=== PATIENT | female | born 1960 | race Caucasian/White ===

== ENCOUNTER 2018-03-12 13:48 | Inpatient (IN) ==
--- NOTE | 2018-03-12 16:28 | Internal Med History&Physical ---
<Randi Garduno - Last Filed: 03/12/18 17:22> Internal Medicine - H&P: HPI History of present illness: Ms. Angel is a 58 year old female Internal Medicine - H&P: Meds No Known Home Drugs 03/12/18 [History] Allergy/AdvReac Type Severity Reaction Status Date / Time No Known Allergies Allergy Verified 03/12/18 11:18 All Systems PM: A 10-system review of systems was performed and is negative for pertinent findings except as documented above in the HPI. - Constitutional Vitals: Temp Pulse Resp BP Pulse Ox 98.3 F 66 16 113/71 99 03/12/18 15:46 03/12/18 15:46 03/12/18 15:46 03/12/18 15:46 03/12/18 15:46 - Time Spent With Patient Total time spent is greater than 50% in coordination of care (as documented) at patient's floor/unit and/or counseling patient: - Attending Attestation I examined this patient and my medical decision-making was reviewed with the Resident Physician Dr Robertson. I agree with the documented findings, disposition and treatment plan as described except to the extent set forth below/addl details below Ms Angel has a past med hx of fibromyalgia, tobacco dependence and THC use for pain. She presented to [place] ED at rec of her pcp for elevated T josh and transaminases on outpt lab work obtained for jaundice. Pt first noted fatigue, nausea, weight loss about 3-5 months ago. She developed yellowing of skin and co worker commented to her about 2 weeks ago. Pt got pcp follow up this week and outpt labs. Upon there result today she was instructed to go to ED CT a/p with 12 cm pnacreatic head mass concerning for pancreatic adenocarcinoma. She was sent her for further work up. Awake, alert, tearful. No nausea, emesis, abd pain. occassional loose bms that have food particles in them when she eats certain foods. Sometimes diarrhea is green. No nightsweats, + 30 lb unintentional weight loss in 3 months. +yellowing of whites of eyes and skin. gen- alert, awake,appears stated age, cachectic eyes- pupils equal round, eom intact, + scleral icterus cv- reg rate and rhythm, normal s1,s2, no murmurs appreciated, no le edema, no jvd lungs- ctabl, no wheezing, rhonchi or crackles abd- soft, non tender, non distended, + bs, no HSM appreciated skin- + jaundice, no ecchymosis, purpura, petechiae neuro- AAOx3 Obstructive Jaundice -CT a/p hypodensity in head of pancreas concerning for pancreatic adenocarcinoma with biliary pancreatic ductal dilatation, HSM. Hyperdense uterine lesions suspected to be fibroids. - T bili 15 (11.5 yesterday), AST 314, ALT 453 (increase from eysterday), Alk Phos 1266, direct bili 9.5 Ammonia 29 and pt has no mental status changes UA lg bili, tylenol <10, hep panel 03/11 neg, HIV 03/11 neg plts 422, INR 1, total protein and albumin normal -we discussed case with GI whom is not available this weekend discussed with sanitation director surgery and rec for transfer for urgent ERCP and possible need for stent -d/w pt and facilitating transfer to [place] Hypokalemia, K + 3.1- will replete oral Vit D Deficiency on 03/11 lab work (10) Hyperglycemia 120-160 without hx diabetes mellitus, likely related to pancreatic changes Tobacco dependence THC Use Fibromyalgia transfer pt for services not able to be provided at [facility] <Mp Robertson - Last Filed: 03/12/18 18:43> Date of Encounter: 03/12/18 Time of Encounter: 16:26 Internal Medicine - H&P: HPI Chief complaint: Jaundice Admitted From: Hospital to Hospital Transfer Plans for Post Hospital Care: Home History of present illness: Ms. Angel is a 58 year old female with PMH of fibromyalgia, who originally presented earlier today at [place] [place] ER for yellowing of the skin. She states a co-worker noticed her skin looked yellow approximately 1-2 weeks ago and she has been "keeping an eye on it". When recalling recent symptoms, she states she has been experiencing anorexia, unintentional weight loss, and diarrhea for approximately the past 5 months. She said at that time her daughter had overdosed on drugs and she assumed the symptoms were stress related, however she notes none of these have since resolved. She also complains of feeling grossly fatigued, but no focal weakness, dizziness, or lightheadedness. She denies any fever, chills, night sweats, easy bleeding, easy bruising, abdominal pain, abdominal bloating or fullness, nausea, vomiting, hematemesis, hematochezia, melena, GI/ symptoms, headaches, numbness, or tingling. Her PMH is only significant for fibromyalgia and self-diagnosed insomnia. She does not take any medications. She prefers to use herbal supplements and teas for her arthralgias, myalgias, and insomnia. She does admit to smoking marijuana, and 1 pack of cigarettes last approximately 3 days. Denies any alcohol, or other illicit drug use. Denies any allergies. Denies any surgeries. Family medical hx: Mother - HTN Father - CHF Brother - Multiple MIs caused by blood clots from his legs No family hx of cancers Past Med Surg Social Fam HX - Past Medical History Attestation: Yes The following information was validated with the patient. Source: patient Medical history: fibromyalgia Additional medical history: INSOMNIA Psychiatric history: no psych history - Past Surgical History Surgical History: no surgical history - Social History Smoking Status: Current every day smoker Packs per day: 1 pack per 3 days Smokeless Tobacco Status: No Alcohol use: none Drug use: marijuana Occupational status: employed Current living situation: Home - Independent Activity Level: Independent ambulation Recent Out of Country Travel Within the Last 8 Weeks: No Exposure or Possible Exposure to Illness During Travel: No All Systems PM: A 10-system review of systems was performed and is negative for pertinent findings except as documented above in the HPI. - Constitutional Constitutional: anorexia, fatigue, lethargy, weight loss, no chills, no fever(s), no falls, no night sweats, no weakness - EENT Eyes: no blurry vision, no change in vision, no itchy eyes, no pain Ears: no decreased hearing, no ear discharge, no ear pain Nose, mouth and throat: no change in voice, no nasal congestion, no nasal discharge, no sore throat - Cardiovascular Cardiovascular ROS IM: no chest pain, no claudication, no diaphoresis, no dyspnea, no dyspnea on exertion, no edema - Respiratory Respiratory: no cough, no dyspnea, no hemoptysis, no dyspnea on exertion, no wheezing, no chest congestion, no excessive phlegm production, no change in phlegm color - Gastrointestinal Gastrointestinal: diarrhea, no abdominal pain, no bloating, no change in bowel habits, no change in stool character, no coffee ground emesis, no dyspepsia, no heartburn, no hematemesis, no hematochezia, no melena, no nausea, no vomiting - Genitourinary Genitourinary: no difficulty urinating, no difficulty voiding, no dysuria, no flank pain, no pelvic pain, no urinary frequency, no urinary hesitancy, no urinary incontinence - Musculoskeletal Musculoskeletal ROS IM: arthralgias, myalgias, no muscle weakness, no numbness, no tingling - Integumentary Integumentary IM: jaundice, no erythema, no rash, no unusual bruising - Neurological Neurological ROS: no abnormal gait, no confusion, no dizziness, no focal weakness, no frequent falls, no headache(s), no numbness, no tingling - Hematologic/Lymphatic Hematologic/Lymphatic: no easy bleeding, no easy bruising, no lymphadenopathy - Constitutional Vitals: Temp Pulse Resp BP Pulse Ox 98.3 F 66 16 113/71 99 03/12/18 15:46 03/12/18 15:46 03/12/18 15:46 03/12/18 15:46 03/12/18 15:46 General appearance: Present: A&O X 3, pleasant, no acute distress, answers questions appropriately Exam: Constitutional: well developed, well nourished female in no acute distress Head: atraumatic, normocephalic Eyes: PERRL, EOMI. scleral icterus present Neck: supple, trachea midline, no lymphadenopathy Lungs: CTA bilaterally. Non-labored breathing. No wheezing, rales, or rhonchi. Heart: RRR +s1 +s2. No murmurs, clicks, or rubs appreciated. Abdomen: soft, non-tender, no hepatosplenomegaly. Some palpable fullness in the epigastric region. Normoactive bowel sounds Extremities: radial pulses palpable and symmetrical. No edema or cyanosis. Neuro: A&Ox3. no focal deficits. Strength in x4 extremities normal. sensation intact. no speech difficulty or abnormality Skin: jaundiced. warm. dry. no lesions noted. - Assessment and plan (1) Obstructive jaundice Current Visit: No Status: Acute Assessment and plan: CT abdomen/pelvis from [place]: -hypodensity in head of pancreas concerning for pancreatic adenocarcinoma with biliary pancreatic ductal dilatation, HSM. Hyperdense uterine lesions suspected to be fibroids. Labs from [place]: - T bili 15 (11.5 yesterday) - Direct Bili 9.5 - AST 314 - ALT 453 - Alk Phos 1266 - Ammonia 29 and pt has no mental status changes - INR 1.0 - Platelets 422 - Total protein and albumin normal Currently afebrile, normotensive, and in no acute distress. Discussed case with GI whom is not available to see her today or this weekend Also discussed case with sanitation director surgery and rec for transfer for urgent ERCP and possible need for stent Discussed all of this with pt and she is amenable to transfer to [facility] (2) Hypokalemia Current Visit: Yes Status: Acute Assessment and plan: Potassium 3.1 Will replace with 40mEq po (3) Tobacco dependence Current Visit: Yes Status: Chronic Assessment and plan: Admits to smoking. 1 pack of cigarettes lasts approximately 3 days. Pt deferring nicotine patch. (4) Hyperglycemia Current Visit: Yes Status: Acute Assessment and plan: Blood glucose elevated to 120-160 No hx diabetes mellitus Likely 2/2 to pancreatic mass Consider checking Hgb A1c in the morning if she is still here (5) Vitamin D deficiency Current Visit: Yes Status: Chronic Assessment and plan: Noted on outside labs Will defer treatment at this time (6) Marijuana use Current Visit: Yes Status: Chronic Assessment and plan: Pt admits to self treating fibromyalgia and insomnia with marijuana Positive on UDS from outside facility - Time Spent With Patient Total time spent is greater than 50% in coordination of care (as documented) at patient's floor/unit and/or counseling patient:
--- NOTE | 2018-03-12 17:35 | Discharge Summary ---
- NOTES TO OUTPATIENT PROVIDER Notes to Outpatient Provider: transfer to [facility] for further work up Orders not resulted at time of discharge: Pending orders 03/13/18 04:00 Activated Partial Thrombo Time [COAG] AM 0400 Complete Blood Count [HEME] AM 0400 Comprehensive Metabolic Panel AM 0400 Hgb A1C AM 0400 Magnesium AM 0400 Phosphorous AM 0400 Prothrombin Time INR [COAG] AM 0400 Date of Encounter: 03/12/18 Time of Encounter: 16:30 - Discharge Diagnosis (1) Obstructive jaundice Priority: Primary Status: Acute (2) Elevated transaminase level Priority: Primary Status: Acute (3) Hyperglycemia Priority: Secondary Status: Acute (4) Hypokalemia Priority: Secondary Status: Acute (5) Vitamin D deficiency Priority: Secondary Status: Chronic (6) Tobacco dependence Priority: Secondary Status: Chronic (7) Marijuana use Priority: Secondary Status: Chronic (8) Fibromyalgia Priority: Secondary Status: Chronic Hospital course: Ms. Angel is a 58 year old female who was transferred from [facility] on 03/12/18 and decisionmade on evaluation of pt on arrival and discussion with surgery and GI plan consultant physicians, for transfer to [facility] for further eval and work up not available at [facility] this weekend. Ms Angel has a past med hx of fibromyalgia, tobacco dependence and THC use for pain. She presented to [facility] at rec of her pcp for elevated T josh and transaminases on outpt lab work obtained for jaundice. Pt first noted fatigue, nausea, weight loss about 3-5 months ago. She developed yellowing of skin around that time and was "keeping an eye on it" until a co worker commented to her about 2 weeks ago about it. She arranged pcp follow up that happened this week and had labs drawn 03/11. Upon their result today she was instructed to go to ED by PCP for emergent eval. CT a/p with 12 cm pnacreatic head mass concerning for pancreatic adenocarcinoma at [facility]. Obstructive Jaundice -CT a/p hypodensity in head of pancreas concerning for pancreatic adenocarcinoma with biliary pancreatic ductal dilatation, HSM. Hyperdense uterine lesions suspected to be fibroids. - T bili 15 (11.5 yesterday), AST 314, ALT 453 (increase from eysterday), Alk Phos 1266, direct bili 9.5 Ammonia 29 and pt has no mental status changes UA lg bili, tylenol <10, hep panel 03/11 neg, HIV 03/11 neg plts 422, INR 1, total protein and albumin normal -we discussed case with GI whom is not available to see her today or this week end -discussed with plan consultant surgery and rec for transfer for urgent ERCP and possible need for stent -d/w pt and facilitating transfer to [place] -keeping npo with sips with meds awaiting transfer Hypokalemia, K + 3.1- will replete oral 40 meq now Vit D Deficiency on 03/11 lab work (10)- defer treatment at this time Hyperglycemia 120-160 without hx diabetes mellitus, likely related to pancreatic changes- if here in AM will check A1c Tobacco dependence-declining patch THC Use + on UDS Fibromyalgia hx she is on no home meds transfer pt for services not able to be provided at [facility] - Time Spent with Patient Total time spent providing and/or coordinating discharge services: - Discharge Medications Home Medications: No Known Home Drugs 03/12/18 [History] Allergies/Adverse Reactions: Allergy/AdvReac Type Severity Reaction Status Date / Time No Known Allergies Allergy Verified 03/12/18 11:18 Date of admission: 03/12/18 15:36 Primary care physician: PCP NONE Consults: surgery and gi were contacted via phone Discharging clinician: Randi Garduno - Constitutional Vitals: Temp Pulse Resp BP Pulse Ox 98.3 F 66 16 113/71 99 03/12/18 15:46 03/12/18 15:46 03/12/18 15:46 03/12/18 15:46 03/12/18 15:46 General appearance: Present: A&O X 3, pleasant, no acute distress, answers questions appropriately Exam: gen- alert, awake,appears stated age, cachectic eyes- pupils equal round, eom intact, + scleral icterus cv- reg rate and rhythm, normal s1,s2, no murmurs appreciated, no le edema, no jvd lungs- ctabl, no wheezing, rhonchi or crackles abd- soft, non tender, non distended, + bs, no HSM appreciated skin- + jaundice, no ecchymosis, purpura, petechiae neuro- AAOx3, CN grossly intact, no focal neuro deficits, no tremor - Patient Status Disposition: Transfer Other Condition: Fair Functional capacity at discharge: independent ambulation Overall status at discharge: patient is not back to baseline - Discharge Instructions Follow Up With: NONE,PCP [Primary Care Provider] - Additional Instructions: transfer to [facility], pending - Diet and Activity Activity: increase activity as tolerated
[2018-03-12] MEDS: 0.9 % Sodium Chloride 1,000 ML IVC SCH (18:07)
[2018-03-13 04:46] LABS: Basophils # 0.1 K/mcL (0.0-0.2); Basophils % 0.9 %; Eosinophils # 0.7 K/mcL (0.0-0.6); Eosinophils % 9.1 %; Hematocrit 30.3 % (35.3-44.9); Hemoglobin 10.9 g/dL (11.5-15.4); Immature Granulocytes % 0.5 % (0-4); Lymphocytes # 1.7 K/mcL (0.6-4.6); Lymphocytes % 23.4 %; Mean Corpuscular Hemoglobin 28.4 pg (28.0-33.3); Mean Corpuscular Volume 78.9 fL (83.0-100.0); Mean Platelet Volume 11.2 fL (9.4-12.4); Monocytes # 0.6 K/mcL (0.0-1.3); Monocytes % 8.2 %; Neutrophils # 4.3 K/mcL (1.6-8.9); Platelet Count 355 K/mcL (140-400); Red Blood Count 3.84 M/mcL (3.82-4.97); Red Cell Distribution Width 20.6 % (11.5-14.5); Segmented Neutrophils % 57.9 %
[2018-03-13 04:54] LABS: INR 1.1; Prothrombin Time 12.2 Seconds (9.4-12.1)
[2018-03-13 04:56] LABS: Activated Partial Thrombo Time 32.2 Seconds (26.0-36.0)
[2018-03-13 05:15] LABS: Alanine Aminotransferase 314 Units/L (7-52); Albumin 3.3 g/dL (3.5-5.7); Albumin/Globulin Ratio 1.3 (1.1-2.2); Alkaline Phosphatase 1077 Units/L (34-104); Aspartate Amino Transferase 243 Units/L (13-39); BUN/Creatinine Ratio 10 (6-26); Bilirubin,Total 12.6 mg/dL (0.3-1.0); Blood Urea Nitrogen 7 mg/dL (6-20); Calcium 9.2 mg/dL (8.6-10.3); Carbon Dioxide 24 mEq/L (23-29); Chloride 108 mEq/L (98-107); Globulin 2.6 g/dL (2.4-3.5); Glucose 109 mg/dL (70-105); Magnesium 2.1 mg/dL (1.6-2.6); Osmolality,Calculated 283 (280-300); Phosphorous 2.6 mg/dL (2.7-4.5); Potassium 4.1 mEq/L (3.5-5.1); Sodium 137 mEq/L (136-145); Total Protein 5.9 g/dL (6.4-8.9); eGFR For Non-African Americans > 60 (> 60)
[2018-03-13 07:00] LABS: Estimated Average Glucose 114 mg/dl; Hemoglobin A1C 5.6 %
[2018-03-13] MEDS: 0.9 % Sodium Chloride 1,000 ML IVC SCH (07:37)
[2018-03-13 07:44] VITALS: BP 120/79
--- NOTE | 2018-03-13 08:26 | Internal Med Progress Note ---
Hospitalist Progress Note - Exam Vitals: Temp Pulse Resp BP Pulse Ox 98.3 F 68 16 120/79 98 03/13/18 07:43 03/13/18 07:43 03/13/18 07:43 03/13/18 07:43 03/13/18 07:43 - Time Spent with Patient Total time spent is greater than 50% in coordination of care (as documented) at patient's floor/unit and/or counseling patient: less than 15 minutes Plan of Care Discussed with: patient Internal Medicine: Result - Labs CBC & Chem 7: 03/13/18 04:20 03/13/18 04:20 Labs: Short CBC 03/13/18 Range/Units 04:20 WBC 7.4 (4.3-11.1) K/mcL Hgb 10.9 L D (11.5-15.4) g/dL Hct 30.3 L (35.3-44.9) % Plt Count 355 (140-400) K/mcL Neutrophils # 4.3 (1.6-8.9) K/mcL BMP 03/13/18 04:20 Sodium 137 Potassium 4.1 D Chloride 108 H Carbon Dioxide 24 BUN 7 Creatinine 0.69 Glucose 109 H Calcium 9.2 Liver Function 03/13/18 Range/Units 04:20 Total Bilirubin 12.6 H (0.3-1.0) mg/dL AST 243 H (13-39) Units/L ALT 314 H (7-52) Units/L Alkaline Phosphatase 1077 H (34-104) Units/L Albumin 3.3 L (3.5-5.7) g/dL - ABG Interpretation ABG results: PT/INR, D-dimer PT 12.2 Seconds (9.4-12.1) H 03/13/18 04:20 Consult Discharge Plan - Plan Additional Instructions: transfer to [facility], pending Referrals: Toyin Ruiz [Advanced Practice Nurse] -
--- NOTE | 2018-03-13 08:34 | Event Note ---
Date of Encounter: 03/13/18 Time of Encounter: 08:27 Pt was awaiting transfer to [facility] this morning. Notified by nursing that 20 minutes ago pt ripped out her IV and stated she was leaving hospital and will have her PCP manage setting up being seen at [facility]. She refused to stay to speak to this physician. As discussed with pt RN pt was informed this could have serious consequences including and she verbalized understanding but did not want to wait for transfer to [facility]. This is a very unfortunate situation given the severity of pt disease process. She is very high risk for further morbidity and at risk of with delay of care.
== END 2018-03-13 08:00 | disposition other institution (70) | DRG 446 ==
LOC: 3ANU 15:36 → SUATTDRO 15:36
PROVIDERS: ADMIT Internal Medicine; ATTEND Internal Medicine